=== PATIENT | female | born 1980 | race Hispanic/Latino ===

== ENCOUNTER 2017-07-31 19:30 | Emergency (ER) | payer MEDICAID | END 2017-07-31 20:02 | disposition home or self-care (01) | LOC: EDH 19:30 | DX: R10.9 Unspecified abdominal pain (principal); T37.0X5A Adverse effect of sulfonamides, initial encounter; T37.3X5A Adverse effect of other antiprotozoal drugs, initial encounter; Z88.0 Allergy status to penicillin; Z88.1 Allergy status to other antibiotic agents; Z87.891 Personal history of nicotine dependence; Y92.89 Other specified places as the place of occurrence of the external cause | CPT/HCPCS: 99281 ==

== ENCOUNTER 2017-12-02 12:01 | Emergency (ER) | payer MEDICAID ==
[2017-12-02 12:35] LABS: BASOPHILS % (AUTO) 0.9 % (0.0-5.0); EOSINOPHILS % (AUTO) 1.7 % (0.0-8.0); HEMATOCRIT 30.9 % (36-48); MEAN CORPUSCULAR HEMOGLOBIN 21.2 pg (27.0-33.0); MEAN CORPUSCULAR HGB CONC 31.2 g/dL (32.0-36.0); MEAN CORPUSCULAR VOLUME 68.1 fL (79-99); MONOCYTES % (AUTO) 7.8 % (3.0-13.0); NEUTROPHILS % (AUTO) 62.6 % (40.0-77.0); RED BLOOD CELL COUNT(AUTO) 4.54 MIL/uL (4.00-5.50); RED CELL DISTRIBUTION WIDTH 16.1 % (11.0-15.5); WHITE BLOOD COUNT (AUTO) 7.8 K/uL (4.8-10.8)
[2017-12-02 12:44] LABS: CREATININE 0.6 mg/dL (0.5-1.5); POTASSIUM 3.8 mmol/L (3.5-5.1)
[2017-12-02 13:12] LABS: PLATELET COUNT (AUTO) 258 K/uL (130-400)
[2017-12-02 13:28] LABS: APPEARANCE,URINE Cloudy (CLEAR); BILIRUBIN,URINE Negative (NEGATIVE); COLOR,URINE Orange (YELLOW); GLUCOSE, URINE (UA) Negative (NEGATIVE); KETONES,URINE Negative (NEGATIVE); LEUKOCYTE ESTERASE ,URINE Small (NEGATIVE); NITRATE,URINE Negative (NEGATIVE); OCCULT BLOOD,URINE Large (NEGATIVE); PROTEIN,URINE Trace (NEGATIVE)
[2017-12-02 13:35] LABS: HCG,QUAL RESULT NEGATIVE (NEGATIVE)
[2017-12-02 13:45] LABS: BACTERIA,URINE Rare /HPF (None Seen); MUCUS,URINE Rare LPF (None Seen); RBC,URINE >100 /HPF (0-1); SQUAMOUS EPITHELIAL CELL,UR Few /HPF (0-2); WBC,URINE 0-1 /HPF (0-1)
== END 2017-12-02 14:01 | disposition home or self-care (01) ==
LOC: EDH 12:01
DX: N93.9 Abnormal uterine and vaginal bleeding, unspecified (principal); D25.9 Leiomyoma of uterus, unspecified; D64.9 Anemia, unspecified; Z88.0 Allergy status to penicillin; Z88.1 Allergy status to other antibiotic agents; Z79.3 Long term (current) use of hormonal contraceptives; Z87.891 Personal history of nicotine dependence
CPT/HCPCS: 36415; 80048; 81001; 81025; 85025

== ENCOUNTER 2018-07-12 07:29 | Day surgery (SDC) | payer MEDICAID ==
[2018-07-08 12:24] VITALS: BP 117/69
[2018-07-08 12:33] LABS: BASOPHILS % (AUTO) 0.7 % (0.0-5.0); EOSINOPHILS % (AUTO) 1.7 % (0.0-8.0); LYMPHOCYTES % (AUTO) 27.7 % (21.0-51.0); MEAN CORPUSCULAR HGB CONC 30.4 g/dL (32.0-36.0); MEAN CORPUSCULAR VOLUME 62.7 fL (79-99); NEUTROPHILS % (AUTO) 60.9 % (40.0-77.0); PLATELET COUNT (AUTO) 288 K/uL (130-400); RED BLOOD CELL COUNT(AUTO) 4.78 MIL/uL (4.00-5.50); WHITE BLOOD COUNT (AUTO) 7.3 K/uL (4.8-10.8)
[2018-07-08 13:17] LABS: APPEARANCE,URINE CLEAR (CLEAR); BILIRUBIN,URINE NEGATIVE (NEGATIVE); COLOR,URINE YELLOW (YELLOW); GLUCOSE, URINE (UA) NEGATIVE (NEGATIVE); KETONES,URINE NEGATIVE (NEGATIVE); LEUKOCYTE ESTERASE ,URINE MODERATE (NEGATIVE); NITRATE,URINE NEGATIVE (NEGATIVE); OCCULT BLOOD,URINE MODERATE (NEGATIVE); PH,URINE 6.5 (5.0-8.0); PROTEIN,URINE NEGATIVE (NEGATIVE); UROBILINOGEN,URINE 0.2 mg/dL (0.2-1.0)
[2018-07-08 13:26] LABS: BACTERIA,URINE Rare /HPF (None Seen); MUCUS,URINE Rare LPF (None Seen); RBC,URINE 0-1 /HPF (0-1); SQUAMOUS EPITHELIAL CELL,UR Moderate /HPF (0-2)
--- NOTE | 2018-07-11 14:00 | NUR ---
ABNORMAL LABS UA AND CBC RESULTS FAXED TO DR. GONZALEZ'S OFFICE EARLIER FOR REVIEW. CALL BACK FROM CLINIC, SPOKE TO JEANINE. PER DR. GONZALEZ, NO FURTHER ORDERS. MAY PROCEED WITH PLANNED PROCEDURE.
[~2018-07-12] VITALS: Ht 157.5 cm; Wt 87.1 kg
[2018-07-12] VITALS (14 sets, daily range): BP systolic 113–127; BP diastolic 62–81
[~2018-07-12 07:29] MED LIST: BUPIVACAINE/PF 0.25% 30ML VIAL IJ ONE; NORE-8 PO
[2018-07-12] MEDS ORDERED: LACTATED RINGERS 1000ML 1,000 ML IV ONE (08:10)
[2018-07-12] MEDS ORDERED: MIDAZOLAM HCL 1 MG/ML 5ML VIAL ONE (08:29)
[2018-07-12] MEDS ORDERED: LIDOCAINE PF 2% 5ML ABBOJECT ONE (08:36)
[2018-07-12] MEDS ORDERED: ROCURONIUM 10MG/1ML SYR 10 MG/ML ML ONE (08:36)
[2018-07-12] MEDS ORDERED: FENTANYL CITRATE PF 50 MCG/1 ML 2ML VIAL ONE (08:36)
[2018-07-12] MEDS ORDERED: PROPOFOL 10 MG/ML 20ML VIAL IV ONE ×2 (08:36→08:45)
[2018-07-12] MEDS ORDERED: ONDANSETRON HCL 4 MG/2 ML VIAL ONE ×2 (08:47→11:31)
[2018-07-12] MEDS ORDERED: DEXAMETHASONE SOD PHOSPHATE 10MG/ML 1ML VIAL ONE (08:47)
[2018-07-12] MEDS ORDERED: NEOSTIGMINE 5MG/5ML SYR IV ONE (09:28)
[2018-07-12] MEDS ORDERED: GLYCOPYRROLATE 1 MG/5 ML SYRINGE ONE (09:28)
[2018-07-12] MEDS ORDERED: MEPERIDINE-PF 25 MG/ML SYG ONE (09:43)
[2018-07-12] MEDS ORDERED: KETOROLAC TROMETHAMINE 30MG/ML ONE (09:50)
== END 2018-07-12 11:55 | disposition home or self-care (01) ==
LOC: DAH 07:29
PROVIDERS: ATTEND Surgery
DX: K42.9 Umbilical hernia without obstruction or gangrene (principal); Z88.0 Allergy status to penicillin; Z88.8 Allergy status to other drugs, medicaments and biological substances; Z79.899 Other long term (current) drug therapy
CPT/HCPCS: 36415; 49585; 81001; 84703; 85025; 88302; A4450; A4452; A4606; C1781; J1100; J1885; J2001; J2175; J2250; J2405 ×2; J2704 ×2; J2710; J3010; J3490 ×2; J7120 ×2

== ENCOUNTER 2021-09-25 18:28 | Emergency (ER) | payer MEDICAID ==
[~2021-09-25] VITALS: Ht 157.5 cm; Wt 89.4 kg
[~2021-09-25 18:28] MED LIST changes: -BUPIVACAINE/PF 0.25% 30ML VIAL IJ ONE
[2021-09-25] MEDS ORDERED: MAG/ALUM/SIMETH 30 ML UDCUP PO ONE (19:30)
[2021-09-25] MEDS ORDERED: FAMOTIDINE 20MG VIAL IV ONE (19:30)
[2021-09-25] MEDS ORDERED: ONDANSETRON 4MG INJ IVP ONE (19:30)
[2021-09-25] MEDS ORDERED: LIDOCAINE HCL 2% VISCOUS 15 ML UDCUP PO ONE (19:30)
[2021-09-25] MEDS ORDERED: DICYCLOMINE HCL 10 MG/5 ML ML PO ONE (19:30)
[2021-09-25 19:37] LABS: BASOPHILS % (AUTO) 0.4 % (0.0-5.0); EOSINOPHILS % (AUTO) 0.6 % (0.0-8.0); LYMPHOCYTES % (AUTO) 22.2 % (21.0-51.0); MEAN CORPUSCULAR HEMOGLOBIN 21.7 pg (27.0-33.0); MEAN CORPUSCULAR HGB CONC 31.5 g/dL (32.0-36.0); MEAN CORPUSCULAR VOLUME 68.8 fL (79-99); MONOCYTES % (AUTO) 6.4 % (3.0-13.0); NEUTROPHILS % (AUTO) 69.8 % (40.0-77.0); PLATELET COUNT (AUTO) 234 K/uL (130-400); RED BLOOD CELL COUNT(AUTO) 4.94 MIL/uL (4.00-5.50); RED CELL DISTRIBUTION WIDTH 16.3 % (11.0-15.5); WHITE BLOOD COUNT (AUTO) 10.7 K/uL (4.8-10.8)
[2021-09-25 19:57] LABS: ALBUMIN 3.6 g/dL (3.5-5.0); CREATININE 0.6 mg/dL (0.5-1.5); TOTAL PROTEIN, SERUM 7.8 g/dL (6.0-8.3)
[2021-09-25] MEDS: ACETAMINOPHEN 500 MG TABLET ONE ×2 (20:07→21:09)
[2021-09-25 20:12] LABS: POTASSIUM 3.2 mmol/L (3.5-5.1)
[2021-09-25] MEDS ORDERED: DICY20TA2 PO (20:27)
[2021-09-25] MEDS ORDERED: FAMO-136 PO (20:27)
[2021-09-25] MEDS ORDERED: POTASSIUM BICARB/CIT AC 25 MEQ TABLET.EFF PO ONE (20:30)
[2021-09-25 20:58] VITALS: BP 122/70
[2021-09-25] MEDS ORDERED: ACETAMINOPHEN 500 MG TABLET PO ONE (21:00)
== END 2021-09-25 21:10 | disposition home or self-care (01) ==
LOC: EDH 18:28
DX: K80.20 Calculus of gallbladder without cholecystitis without obstruction (principal); D64.9 Anemia, unspecified; E87.6 Hypokalemia; K21.9 Gastro-esophageal reflux disease without esophagitis; E66.9 Obesity, unspecified; Z88.0 Allergy status to penicillin; Z88.1 Allergy status to other antibiotic agents; Z68.36 Body mass index [BMI] 36.0-36.9, adult
CPT/HCPCS: 99284; 96374; 76705; 96375; 84484; 80053; 83690; 85025; 36415; J2405; S0028; J3490

== ENCOUNTER 2022-03-04 14:25 | Observation (INO) | payer MEDICAID ==
[~2022-03-04] VITALS: Ht 157.5 cm; Wt 92.5 kg
[~2022-03-04 14:25] MED LIST changes: +DICY20TA2 PO; +FAMO-136 PO
[2022-03-04 15:26] LABS: APPEARANCE,URINE CLOUDY (CLEAR); BILIRUBIN,URINE NEGATIVE (NEGATIVE); COLOR,URINE YELLOW (YELLOW); GLUCOSE, URINE (UA) 150 mg/dL (NEGATIVE); KETONES,URINE 5 mg/dL (NEGATIVE); LEUKOCYTE ESTERASE ,URINE NEGATIVE Leu/uL (NEGATIVE); NITRATE,URINE NEGATIVE (NEGATIVE); OCCULT BLOOD,URINE NEGATIVE (NEGATIVE); PH,URINE 5.5 (5.0-8.0); PROTEIN,URINE 20 mg/dL (NEGATIVE); UROBILINOGEN,URINE 0.2 mg/dL (0.2-1.0)
[2022-03-04 15:32] LABS: BACTERIA,URINE MOD /HPF (None Seen); MUCUS,URINE RARE LPF (None Seen); RBC,URINE 0-1 /HPF (0-1); SQUAMOUS EPITHELIAL CELL,UR MOD /HPF (0-2); YEAST,URINE BUDDING FEW /HPF (None Seen)
[2022-03-04 15:33] LABS: AMPHET/METH SCREEN,URINE NEGATIVE (NEGATIVE); BARBITURATE SCREEN, URINE NEGATIVE (NEGATIVE); BENZODIAZEPINES SCREEN,URINE NEGATIVE (NEGATIVE); CANNABINOID SCREEN,URINE NEGATIVE (NEGATIVE); COCAINE SCREEN,URINE NEGATIVE (NEGATIVE); OPIATE SCREEN,URINE NEGATIVE (NEGATIVE); PHENCYCLIDINE SCREEN,URINE NEGATIVE (NEGATIVE)
== END 2022-03-04 16:00 | disposition home or self-care (01) ==
LOC: LDH 14:25
PROVIDERS: ADMIT Obstetrics & Gynecology; ATTEND Obstetrics & Gynecology
DX: O26.893 Other specified pregnancy related conditions, third trimester (principal); R10.30 Lower abdominal pain, unspecified; R10.10 Upper abdominal pain, unspecified; O24.419 Gestational diabetes mellitus in pregnancy, unspecified control; Z3A.31 31 weeks gestation of pregnancy; Z91.040 Latex allergy status; Z88.0 Allergy status to penicillin
CPT/HCPCS: 80305; 81001; G0379; G0378

== ENCOUNTER 2022-04-15 17:18 | Observation (INO) | payer MEDICAID ==
[~2022-04-15] VITALS: Ht 157.5 cm; Wt 96.2 kg
[2022-04-15] MEDS ORDERED: EPHEDRINE SULFATE 50 MG/ML AMPULE IVP PRN (17:30)
[2022-04-15] MEDS ORDERED: NALOXONE HCL 0.4 MG/1 ML ML IV PRN (17:30)
[2022-04-15] MEDS ORDERED: LACTATED RINGERS 1000ML 1,000 ML IV PRN (17:30)
[2022-04-15] MEDS ORDERED: ROPIVACAINE 0.2% 100ML VIAL 100 ML EP SCH (17:30)
[2022-04-15] MEDS ORDERED: LACTATED RINGERS 500 ML 500 ML IV PRN (17:30)
[2022-04-15] MEDS ORDERED: MEPERIDINE-PF 50 MG/ML SYG IVP PRN (17:30)
[2022-04-15] MEDS ORDERED: PROMETHAZINE HCL 25 MG/ML 1ML AMPULE IM PRN (17:30)
[2022-04-15] MEDS ORDERED: DINOPROSTONE 10 MG VAGINAL SUPP VG SCH (18:00)
[2022-04-15 18:01] LABS: APPEARANCE,URINE CLOUDY (CLEAR); BILIRUBIN,URINE NEGATIVE (NEGATIVE); COLOR,URINE YELLOW (YELLOW); GLUCOSE, URINE (UA) 70 mg/dL (NEGATIVE); KETONES,URINE 5 mg/dL (NEGATIVE); LEUKOCYTE ESTERASE ,URINE NEGATIVE Leu/uL (NEGATIVE); NITRATE,URINE NEGATIVE (NEGATIVE); OCCULT BLOOD,URINE NEGATIVE (NEGATIVE); PH,URINE 5.5 (5.0-8.0); PROTEIN,URINE 50 mg/dL (NEGATIVE)
[2022-04-15 18:04] LABS: MEAN CORPUSCULAR HEMOGLOBIN 19.6 pg (27.0-33.0); MEAN CORPUSCULAR HGB CONC 29.6 g/dL (32.0-36.0); MEAN CORPUSCULAR VOLUME 66.3 fL (79-99); PLATELET COUNT (AUTO) 205 K/uL (130-400); RED BLOOD CELL COUNT(AUTO) 3.92 MIL/uL (4.00-5.50); RED CELL DISTRIBUTION WIDTH 19.9 % (11.0-15.5); WHITE BLOOD COUNT (AUTO) 9.2 K/uL (4.8-10.8)
[2022-04-15 18:09] LABS: BACTERIA,URINE MOD /HPF (None Seen); MUCUS,URINE FEW LPF (None Seen); SQUAMOUS EPITHELIAL CELL,UR MOD /HPF (0-2)
[2022-04-15 18:21] VITALS: BP 129/67
[2022-04-15] MEDS: CLINDAMYCIN IVPB 600MG/50ML 50 ML IV SCH (18:30)
[2022-04-15] MEDS ORDERED: ACETAMINOPHEN 500 MG TABLET PO PRN (20:00)
[2022-04-15] MEDS ORDERED: FAMOTIDINE 20MG TAB PO PRN (20:00)
[2022-04-16] MEDS: CLINDAMYCIN IVPB 600MG/50ML 50 ML IV SCH ×2 (00:20→06:15)
[2022-04-16] MEDS ORDERED: OXYTOCIN-LR 20 UNITS/1000 ML 1,000 ML IV SCH (06:00)
== END 2022-04-16 09:30 | disposition home or self-care (01) ==
LOC: INTOOBSV 17:18 → LDH 17:18
PROVIDERS: ADMIT Obstetrics & Gynecology; ATTEND Obstetrics & Gynecology
DX: O62.9 Abnormality of forces of labor, unspecified (principal); O99.013 Anemia complicating pregnancy, third trimester; D64.9 Anemia, unspecified; O24.419 Gestational diabetes mellitus in pregnancy, unspecified control; Z3A.40 40 weeks gestation of pregnancy
CPT/HCPCS: 36430; 96365; 86592; 82947; 85027; 86850; 86900; 86901; 86923; 87340; 81001; 36415; 96361 ×2; 76805; 96366; 96367; P9016; J3490 ×3; G0378; J7120; J2590; 96360

== ENCOUNTER 2022-11-11 15:08 | Emergency (ER) | payer MEDICAID ==
[~2022-11-11] VITALS: Ht 157.5 cm; Wt 81.6 kg
[~2022-11-11 15:08] MED LIST changes: +ACET-2079 PO; -DICY20TA2 PO; +DOCU-116 PO; -FAMO-136 PO; +IBUP-2077 PO
[2022-11-11 16:07] LABS: BASOPHILS # (AUTO) 0.05 K/uL (0.00-0.20); BASOPHILS % (AUTO) 0.5 % (0.0-5.0); EOSINOPHILS # (AUTO) 0.16 K/uL (0.00-0.70); EOSINOPHILS % (AUTO) 1.7 % (0.0-8.0); HEMATOCRIT 33.5 % (36-48); IMMATURE GRANULOCYTE ABSOLUTE 0.05 K/uL (0-1); LYMPHOCYTES # (AUTO) 2.4 K/uL (1.0-4.8); MEAN CORPUSCULAR HEMOGLOBIN 18.8 pg (27.0-33.0); MONOCYTES # (AUTO) 0.8 K/uL (0.1-1.0); MONOCYTES % (AUTO) 8.1 % (3.0-13.0); NEUTROPHILS # (AUTO) 5.9 K/uL (1.8-7.7); NEUTROPHILS % (AUTO) 63.2 % (40.0-77.0); PLATELET COUNT (AUTO) 284 K/uL (130-400); RED BLOOD CELL COUNT(AUTO) 5.15 MIL/uL (4.00-5.50); RED CELL DISTRIBUTION WIDTH 22.9 % (11.0-15.5); WHITE BLOOD COUNT (AUTO) 9.4 K/uL (4.8-10.8)
[2022-11-11 16:18] LABS: INR < 0.93 (0.85-1.15); PROTHROMBIN TIME 10.5 SEC (9.6-11.6)
[2022-11-11 16:19] LABS: PARTIAL THROMBOPLASTIN TIME 27.1 SEC (26.3-35.5)
[2022-11-11 16:19] LABS: APPEARANCE,URINE CLOUDY (CLEAR); BILIRUBIN,URINE NEGATIVE (NEGATIVE); COLOR,URINE LIGHT-ORANGE (YELLOW); GLUCOSE, URINE (UA) NEGATIVE (NEGATIVE); KETONES,URINE NEGATIVE (NEGATIVE); LEUKOCYTE ESTERASE ,URINE 25 Leu/uL (NEGATIVE); NITRATE,URINE NEGATIVE (NEGATIVE); OCCULT BLOOD,URINE LARGE (NEGATIVE); PH,URINE 5.5 (5.0-8.0); PROTEIN,URINE 50 mg/dL (NEGATIVE); UROBILINOGEN,URINE 0.2 mg/dL (0.2-1.0)
[2022-11-11 16:23] LABS: CREATININE 0.6 mg/dL (0.5-1.5); POTASSIUM 3.7 mmol/L (3.5-5.1)
[2022-11-11 16:28] LABS: ALBUMIN 3.6 g/dL (3.5-5.0); BILIRUBIN,TOTAL 0.3 mg/dL (0.2-1.0); TOTAL PROTEIN, SERUM 7.4 g/dL (6.0-8.3)
[2022-11-11 16:35] LABS: ADD UA MICROSCOPIC YES
[2022-11-11 16:36] LABS: BACTERIA,URINE MOD /HPF (None Seen); MUCUS,URINE FEW LPF (None Seen); RBC,URINE TNTC /HPF (0-1); SQUAMOUS EPITHELIAL CELL,UR FEW /HPF (0-2)
[2022-11-11] MEDS ORDERED: MEDR10TA PO (18:20)
[2022-11-11] MEDS ORDERED: IBUP-2070 PO (18:20)
[2022-11-11] MEDS ORDERED: FERR324T4 PO (18:20)
[2022-11-11] MEDS ORDERED: KETOROLAC 30MG VIAL (30MG/ML) ONE (18:26)
[2022-11-11] MEDS ORDERED: ESTROGENS,CONJUGATED 25 MG/VIAL IV SCH (18:30)
[2022-11-11] MEDS ORDERED: KETOROLAC 15MG/ML VIAL (15MG/ML) IV ONE (18:30)
[2022-11-11] MEDS ORDERED: ESTROGENS CONJUGATED IV ONE (18:45)
[2022-11-11] MEDS ORDERED: [UNRECOGNIZED DRUG - OTHER] IV ONE (18:45)
[2022-11-11 19:06] VITALS: BP 124/79; PULSE 78; RESP 18; O2SAT 99
== END 2022-11-11 19:05 | disposition home or self-care (01) ==
LOC: EDH 15:08
DX: N93.8 Other specified abnormal uterine and vaginal bleeding (principal); D64.9 Anemia, unspecified; D25.9 Leiomyoma of uterus, unspecified; K21.9 Gastro-esophageal reflux disease without esophagitis; Z79.899 Other long term (current) drug therapy; Z98.890 Other specified postprocedural states; Z88.0 Allergy status to penicillin; Z88.1 Allergy status to other antibiotic agents; Z88.5 Allergy status to narcotic agent
CPT/HCPCS: 99285; 96365; 76856; 96375; 80053; 85025; 85610; 85730; 86850; 86900; 86901; 87077; 87088; 87186; 81001; 36415; J1410; J1885

== ENCOUNTER 2023-04-27 05:58 | Day surgery (SDC) | payer MEDICAID ==
[2023-04-23 09:54] LABS: BASOPHILS # (AUTO) 0.03 K/uL (0.00-0.20); BASOPHILS % (AUTO) 0.5 % (0.0-5.0); EOSINOPHILS # (AUTO) 0.13 K/uL (0.00-0.70); HEMATOCRIT 33.6 % (36-48); IMMATURE GRANULOCYTE ABSOLUTE 0.02 K/uL (0-1); LYMPHOCYTES # (AUTO) 1.9 K/uL (1.0-4.8); LYMPHOCYTES % (AUTO) 29.2 % (21.0-51.0); MEAN CORPUSCULAR HGB CONC 29.8 g/dL (32.0-36.0); MEAN CORPUSCULAR VOLUME 67.3 fL (79-99); MONOCYTES # (AUTO) 0.4 K/uL (0.1-1.0); MONOCYTES % (AUTO) 6.6 % (3.0-13.0); NEUTROPHILS % (AUTO) 61.4 % (40.0-77.0); PLATELET COUNT (AUTO) 284 K/uL (130-400); RED BLOOD CELL COUNT(AUTO) 4.99 MIL/uL (4.00-5.50); RED CELL DISTRIBUTION WIDTH 21.2 % (11.0-15.5); WHITE BLOOD COUNT (AUTO) 6.5 K/uL (4.8-10.8)
[2023-04-23 10:13] LABS: INR <= 0.93 (0.85-1.15); PROTHROMBIN TIME 10.3 SEC (9.6-11.6)
[2023-04-23 10:17] VITALS: BP 138/68; PULSE 52; RESP 19
[2023-04-23 10:21] LABS: CREATININE 0.6 mg/dL (0.5-1.5); POTASSIUM 3.7 mmol/L (3.5-5.1)
[2023-04-27] VITALS (17 sets, daily range): BP systolic 123–146; BP diastolic 64–82; PULSE 69–90; RESP 15–20
[~2023-04-27] VITALS: Ht 157.5 cm; Wt 90.3 kg
[~2023-04-27 05:58] MED LIST changes: -ACET-2079 PO; -DOCU-116 PO; +FERR324T4 PO; -IBUP-2077 PO; -NORE-8 PO
[2023-04-27] MEDS ORDERED: CLINDAMYCIN IVPB 600MG/50ML 50 ML IV ONE (06:19)
[2023-04-27] MEDS ORDERED: GLYCOPYRROLATE 0.2 MG/ML 5 ML VIAL ONE (07:07)
[2023-04-27] MEDS ORDERED: DEXAMETHASONE SOD PHOSPHATE 10MG/ML 1ML VIAL ONE (07:07)
[2023-04-27] MEDS ORDERED: SUCCINYLCHOLINE CHLORIDE 20 MG/ML 10 ML VIAL ONE (07:07)
[2023-04-27] MEDS ORDERED: LIDOCAINE PF 100MG/5ML (2%) SYRINGE 5ML ONE (07:07)
[2023-04-27] MEDS ORDERED: ONDANSETRON 4MG INJ ONE (07:07)
[2023-04-27] MEDS ORDERED: FENTANYL CITRATE PF 50 MCG/1 ML 2ML VIAL ONE ×3 (07:08→08:12)
[2023-04-27] MEDS ORDERED: NEOSTIGMINE METHYLSULFATE 1MG/ML IV ONE (07:08)
[2023-04-27] MEDS ORDERED: PROPOFOL 10 MG/ML 20ML VIAL IV ONE (07:08)
[2023-04-27] MEDS ORDERED: ROCURONIUM BROMIDE 10MG/1ML 5ML VL ONE (07:08)
[2023-04-27] MEDS ORDERED: MIDAZOLAM HCL 1 MG/ML 2ML VIAL ONE (07:08)
[2023-04-27] MEDS ORDERED: BUPIVACAINE/PF 0.25% 30ML VIAL IJ ONE (07:29)
[2023-04-27] MEDS: BUPIVACAINE/PF 0.25% 30ML VIAL IJ ONE (08:06)
[2023-04-27] MEDS ORDERED: DOCU-116 PO (08:56)
[2023-04-27] MEDS ORDERED: GABA-529 PO (08:56)
[2023-04-27] MEDS ORDERED: TRAM50TA4 PO (08:56)
[2023-04-27] MEDS ORDERED: METH-662 PO (08:56)
[2023-04-27] MEDS: MEPERIDINE-PF 25 MG/ML SYG ONE (09:16)
[2023-04-27] MEDS: LACTATED RINGERS 1000ML 1,000 ML IV ONE (09:47)
== END 2023-04-27 10:50 | disposition home or self-care (01) ==
LOC: DAH 05:58
PROVIDERS: ATTEND Surgery
DX: K80.10 Calculus of gallbladder with chronic cholecystitis without obstruction (principal); Z79.01 Long term (current) use of anticoagulants; Z79.899 Other long term (current) drug therapy; Z98.891 History of uterine scar from previous surgery; Z98.890 Other specified postprocedural states; Z88.0 Allergy status to penicillin
CPT/HCPCS: 80048; 84703; 85025; 85610; 85730; 36415; 47563; 81025; 88304; 74330; A6260; A4663; J7030; A4215 ×2; C1758; J7120; J3010 ×3; J1100; J0330; J0665 ×2; J3490 ×5; J2250; J2405; J2710; J2175; A4649 ×2; A4930 ×2; A4223; A4222; A4221; A4600 ×2; 48400; J2001; J2704

== ENCOUNTER 2024-05-27 15:55 | Emergency (ER) | payer SELFPAY ==
[~2024-05-27] VITALS: Ht 157.5 cm; Wt 86.2 kg
[~2024-05-27 15:55] MED LIST changes: +DOCU-116 PO; +GABA-529 PO; +METH-662 PO; +TRAM50TA4 PO
[2024-05-27 17:48] LABS: RAPID GROUP A STREP negative (NEGATIVE)
[2024-05-27 17:50] LABS: SARS-CoV-2, RNA, NAAT NEGATIVE SARS CoV-2 (NEGATIVE)
[2024-05-27 18:19] LABS: INFLUENZA TYPE A Negative For Type A (NEGATIVE); INFLUENZA TYPE B Negative For Type B (NEGATIVE)
[2024-05-27 18:57] VITALS: BP 126/84; PULSE 76; RESP 16; TEMP 98.2; O2SAT 98
[2024-05-27] MEDS ORDERED: CLIN-141 PO (18:58)
[2024-05-27] MEDS ORDERED: OSEL75 PO (18:59)
--- NOTE | 2024-05-27 19:01 | ERN ---
General Chief Complaint: Sore Throat Stated Complaint: SORE THROAT, CONGESTION Time Seen by MD: 15:59 Time Seen by Midlevel: 15:59 Source: patient History of Present Illness Initial Comments Patient is a 43-year-old female presenting to the emergency department for evaluation of flu-like symptoms that started today. Her daughter is sick with similar symptoms and tested positive for flu a, flu B, and strep today. Allergies: Coded Allergies: Cephalosporins (Unverified Allergy, Unknown, 07/08/18) Penicillins (Unverified Allergy, Unknown, 07/08/18) morphine (Unverified Allergy, Unknown, 04/28/22) Home Meds Active Scripts Oseltamivir Phosphate (Tamiflu) 75 Mg Cap, 1 CAP PO BID for 5 Days, #10 CAP 0 Refills Prov:RAUDEL LOUIS 05/27/24 Clindamycin HCl (Clindamycin HCl) 300 Mg Capsule, 1 CAP PO TID for 7 Days, #21 CAP 0 Refills Prov:RAUDEL LOUIS 05/27/24 Methocarbamol (Robaxin) 750 Mg Tab, 500 MG PO TID, #15 TAB 0 Refills Prov:OSMAN SAHA MD 04/27/23 Gabapentin (Gabapentin) 100 Mg Capsule, 100 MG PO TID, #15 CAP 0 Refills Prov:OSMAN SAHA MD 04/27/23 Docusate Sodium (Colace) 100 Mg Capsule, 100 MG PO BID, #30 CAP 0 Refills Prov:OSMAN SAHA MD 04/27/23 Tramadol Hcl (Tramadol HCl) 50 Mg Tablet, 50 MG PO Q6HPRN PRN for PAIN, #28 TAB 0 Refills Prov:OSMAN SAHA MD 04/27/23 Ferrous Sulfate (Ferrous Sulfate) 324 Mg (65 Mg Iron) Tablet.dr, 324 MG PO DAILY for 90 Days, #90 TAB Prov:MALLORY TALBERT MD 11/11/22 Past Medical History Past Medical History: No Pertinent History Medical History Other: Obesity, UTERINE FRIBROIDS Past Surgical History: Cholecystectomy, Surgical History Other: HERNIA REPAIR Family History Family History: Negative Social History Social History: Negative ROS Dictation CONSTITUTIONAL: Negative except for HPI HEAD/FACE: Negative except for HPI EENT: Negative except for HPI RESPIRATORY: Negative except for HPI GASTROINTESTINAL/ABDOMINAL: Negative except for HPI GENITOURINARY: Negative except for HPI MUSCULOSKELETAL: Negative except for HPI INTEGUMENTARY: Negative except for HPI NEUROLOGICAL/PSYCH: Negative except for HPI HEMATOLOGIC/LYMPHATIC: Negative except for HPI All Systems Negative, Except as noted above. 13 point review of systems assessed and all negative except for above. Physical Exam Physical Exam Dictation Vital Signs reviewed General Appearance: Alert, oriented x 3, no acute distress, well developed, nourished. Head and Face: non-traumatic. Eyes: PERRL, pink conjunctivas, eyelid no trauma, anterior chamber with arcus senilis. Ears: Pinnas intact and no signs of trauma or erythema ear canals clear and no discharge TM no erythema Nose: No discharge, no bleeding. Oropharynx: Mouth normal, tongue pink, pharynx clear,no erythema, tonsils no exudates, no abscesses noted, mucous membrane moist Neck: Supple, non-tender, no thyromegaly, no masses, no JVD, no bruits Breast:Deferred Chest:No tenderness, no crepitus, no paradoxical movement, no retractions Lungs:Clear, well-ventilated, symmetric, no rales, no wheezing, no rhonchi, no stridor, good breath sounds bilaterally Heart: Regular rate, regular rhythm, no murmur, no gallops Vascular: no peripheral edema, Abdomen: Soft, positive bowel sounds, nondistended, no guarding, nontender, no rebound, no masses no hepatomegaly, no splenomegaly, no Arriaga's sign, no hernias. Rectal: Deferred Genital: Deferred Neurological: Normal speech, motor function intact, sensory function intact Musculoskeletal: Neck nontender, full range of motion, back nontender, full ran ge of motion, Extremities: nontender, full range of motion Skin: Color pink, dry, no turgor, no rash, no lacerations, no abrasions, no contusions. Lymphatic: Deferred Results Laboratory and Microbiology Lab and Micro Result Laboratory Tests Test 05/27/24 17:17 Influenza Type A Antigen Negative For Type A Influenza Type B Antigen Negative For Type B SARS-CoV-2, RNA, NAAT NEGATIVE SARS CoV-2 Group A Streptococcus Rapid negative (NEGATIVE) Labs Reviewed?: Yes MDM MDM: 43-year-old female presenting with flu-like symptoms. Daughter is sick with similar symptoms. Daughter tested positive for flu a, flu B, and strep. Patient was respiratory swabs are negative. However, we will treat for both flu and strep. Her physical exam is reassuring and can be treated outpatient. Patient was agreeable with the plan and all questions have been answered Differential diagnosis: Viral syndrome, upper respiratory infection, strep There are no social concerns with this patient. Prescription drug management Prescriptions will include: Tamiflu and Augmentin Medical management and examination interpretation discussions were had by me with other qualified healthcare professionals as indicated for the patient's care. ED Course Orders Procedure Category Date Status Time Covid Rna Naat LAB 05/27/24 Complete 16:24 Influenza Type A & B, LAB 05/27/24 Complete Rapid 16:24 Rapid (Group A Strep) LAB 05/27/24 Complete 16:24 Vital Signs Date Time Temp Pulse Resp B/P (MAP) Pulse Ox O2 Delivery O2 Flow Rate FiO2 05/27/24 18:57 98.2 76 16 126/84 98 Room Air* 0 21 05/27/24 17:24 98.2 78 16 124/86 98 Room Air* 0 05/27/24 15:56 98.2 76 16 124/86 99 Room Air 0 DX & DISP Disposition: Discharge Departure Impression: Primary Impression: Viral illness Additional Impression: Strep pharyngitis Condition: Stable Scripts Oseltamivir Phosphate (Tamiflu) 75 Mg Cap 1 CAP PO BID for 5 Days, #10 CAP 0 Refills Prov: RAUDEL LOUIS 05/27/24 Clindamycin HCl (Clindamycin HCl) 300 Mg Capsule 1 CAP PO TID for 7 Days, #21 CAP 0 Refills Prov: RAUDEL LOUIS 05/27/24 Time of Disposition: 18:57 I have reviewed the case, and I agree with, Diagnosis and Plan I performed the substantive portion of the visit. I have reviewed and personally made and approve the management plan that is documented in the note by myself or the BOB[facility]. I acknowledge for responsibility for the patient's management plan. RAUDEL LOUIS May 27, 2024 19:00
== END 2024-05-27 19:09 | disposition home or self-care (01) ==
LOC: EDH 15:55
DX: B34.9 Viral infection, unspecified (principal); J02.0 Streptococcal pharyngitis; E66.9 Obesity, unspecified; Z79.899 Other long term (current) drug therapy; Z88.0 Allergy status to penicillin; Z88.1 Allergy status to other antibiotic agents; Z88.5 Allergy status to narcotic agent; Z90.49 Acquired absence of other specified parts of digestive tract; Z98.890 Other specified postprocedural states; Z20.822 Contact with and (suspected) exposure to COVID-19
CPT/HCPCS: 87635; 87804; 87880; 99283